=== PATIENT | female | born 1995 | race Two or more races ===

== ENCOUNTER 2017-08-01 11:51 | Emergency (ER) | payer MEDICAID ==
[~2017-08-01] VITALS: Ht 170.2 cm; Wt 68.0 kg
[2017-08-01] MEDS ORDERED: IBUPROFEN 600MG TABLET PO ONE (16:15)
[2017-08-01 16:40] VITALS: BP 154/81
== END 2017-08-01 17:18 | disposition home or self-care (01) ==
LOC: ER 11:51
DX: S93.402A Sprain of unspecified ligament of left ankle, initial encounter (principal); X58.XXXA Exposure to other specified factors, initial encounter; Y93.01 Activity, walking, marching and hiking; Y92.89 Other specified places as the place of occurrence of the external cause; Y99.8 Other external cause status
CPT/HCPCS: 73610; 81025; 99284